=== PATIENT | female | born 1940 | race Caucasian/White ===

== ENCOUNTER 2016-02-21 11:05 | Outpatient (CLI) | payer MEDICARE ==
[2016-02-21 12:16] LABS: Red Blood Cell (RBC) Count 3.32 mill/uL (4.20-5.40); White Blood Cell (WBC) Count 4.9 thou/uL (4.8-10.8)
[2016-02-21 12:18] LABS: ALT (SGPT) 21 U/L (0-55); AST (SGOT) 22 U/L (5-34); Alkaline Phosphatase 88 U/L (40-150); Anion Gap 11 mmol/L (10-20); Anisocytosis SLIGHT = 6-15 cells (100X) (0-5/hpf); BUN (Urea Nitrogen) 17 mg/dL (9.8-20.1); Bilirubin, Total 0.8 mg/dL (0.2-1.2); Calc. Creatinine Clearance 0 mL/min (70-130); Calcium 8.8 mg/dL (7.8-10.44); Carbon Dioxide 26 mmol/L (23-31); Chloride 109 mmol/L (98-107); Estimated GFR-MDRD 68; Globulin 2.2 g/dL (2.4-3.5); Hypochromia SLIGHT = 6-15 cells (100X) (0-5/hpf); LDL Cholesterol, Calculated 57 mg/dL; Neutrophil 49 % (42-75); Protein, Total 5.9 g/dL (5.8-8.1)
--- NOTE | 2016-02-21 14:56 | RAD ---
EXAM: LEFT FOOT THREE VIEWS HISTORY: Pain and swelling x3 weeks. COMPARISON: None. FINDINGS: There are degenerative changes of the first metatarsophalangeal joint space. Minimal hallux valgus deformity. No fractures or cortical irregularity. Joint spaces are preserved. Lisfranc alignment is maintained. Mild hypertrophy of the Achilles tendon insertion site. IMPRESSION: Chronic changes. POS: CRISTAL
--- NOTE | 2016-02-21 15:22 | RAD ---
FRONTAL AND LATERAL IMAGING OF THE LEFT TIBIA AND FIBULA: Date: 02-21-16 Comparison: None. History: Pain and swelling to the left lower extremity/foot for three weeks. No history of trauma. FINDINGS: There are numerous post-operative clips within the soft tissues medial to the proximal and mid shaft left tibia. No fracture or dislocation is evident. IMPRESSION: No acute fracture or dislocation seen. POS: KAYLEE
== END 2016-02-21 11:06 | disposition home or self-care (01) ==
LOC: NAV LAB 11:05
PROVIDERS: ATTEND Family Medicine
DX: I11.9 Hypertensive heart disease without heart failure (principal); M79.672 Pain in left foot; M79.605 Pain in left leg
CPT/HCPCS: 36415; 80053; 80061; 84443; 85025

== ENCOUNTER 2016-03-20 11:40 | Emergency (ER) | payer MEDICARE ==
--- NOTE | 2016-03-20 12:10 | RAD ---
LEFT FOOT THREE VIEWS HISTORY: Left foot injury, chopping wood with ax 6 days ago. COMPARISON: Left foot radiographs 02/21/2016. FINDINGS: No acute fracture or malalignment of the left foot. Moderate interphalangeal joint space narrowing of the distal phalanges. Mild hallux valgus deformity and osseous bunion formation. Moderate dorsa l calcaneal spur. Mild soft tissue edema. IMPRESSION: Increasing dorsal soft tissue edema of the mid foot without acute underlying osseous abnormality. POS: CRISTAL
--- NOTE | 2016-03-20 12:52 | PICIS ---
[facility] EMERGENCY RECORD TRIAGE (11:46 MSPE) PATIENT: NAME: Keshia Alvarez, AGE: 75, GENDER: female, : Sun 1940, TIME OF GREET: SatMar 20, 2016 11:41, PREFERRED LANGUAGE: Estonian, ETHNICITY: Not or , ECODE BILLING MAP: [facility] ER, SSN: [id number], Zip Code: [address], KG WEIGHT: 72.12, PHONE: , , , PERSON ID: [id number], PCP: MD Driver Katherine. (11:46 MSPE) TRIAGE NOTES: chopping wood with ax 9 days ago. Wood fell onto top of left foot. (11:46 MSPE) COMPLAINT: LEFT FOOT INJURY. (11:46 MSPE) ADMISSION: URGENCY: 4 Non Urgent, ADMISSION SOURCE: Home, TRANSPORT: CAR, BED: ER -02. (11:46 MSPE) LMP: LMP: Menopause. (11:49 MSPE) PROVIDERS: TRIAGE NURSE: Jennyfer Guerrero RN. (11:46 MSPE) VITAL SIGNS: BP 174/92, Pulse 52, Resp 18, Temp 96.8, (Oral), Pain 9, O2 Sat 98, on Room Air, Time 03/20/2016 11:44. (11:44 MSPE) KNOWN ALLERGIES unk pain pill CURRENT MEDICATIONS meloxicam: TABLET : Strength - 7.5 mg : ORAL Patient Dose: 1 tab(s) Oral once a day. (12:09 MSPE) Zetia: TABLET : Strength - 10 mg : ORAL Patient Dose: 1 tab(s) Oral once a day. (12:10 MSPE) atorvastatin: TABLET : Strength - 80 mg : ORAL Patient Dose: 1 tab(s) Oral once a day. (12:10 MSPE) Mobic: TABLET : Strength - 15 mg : ORAL Patient Dose: 7.5 mg Oral once a day (after a meal). (12:11 MSPE) lisinopril: TABLET : Strength - 20 mg : ORAL Patient Dose: 20 mg Oral once a day. (12:12 MSPE) carvedilol: TABLET : Strength - 6.25 mg : ORAL Patient Dose: 6.25 mg Oral 2 times a day. (12:12 MSPE) levothyroxine: TABLET : Strength - 88 mcg : ORAL Patient Dose: 88 mcg Oral once a day. (12:13 MSPE) amLODIPine: TABLET : Strength - 5 mg : ORAL Patient Dose: 5 mg Oral once a day. (12:13 MSPE) aspirin: TABLET : Strength - 81 mg : ORAL Patient Dose: 81 mg Oral once a day. (12:14 MSPE) hydrALAZINE: &a-1R&a+25V*p+0X*j7083D*c152B*c15G*c2P*p-0X&a-25V&a+1RName: Rosannaalesia Keshia : 1940 F75 MedRec: [id number] AcctNum: [id number] Prepared: SatMar 20, 2016 14:04 by Interface Page 1 of 5 pMD [facility] EMERGENCY RECORD TABLET : Strength - 25 mg : ORAL Patient Dose: 25 mg Oral 2 times a day (with meals). (12:14 MSPE) furosemide: TABLET : Strength - 20 mg : ORAL Patient Dose: 20 mg Oral once a day. (12:15 MSPE) Eliquis: TABLET : Strength - 5 mg : ORAL Patient Dose: 5 mg Oral once a day. (12:15 MSPE) Fish Oil: CAPSULE : Strength - 1,000 mg : ORAL Patient Dose: 1 cap(s) Oral once a day. (12:18 MSPE) Vitamin D3: CAPSULE : Strength - 1,000 unit : ORAL Patient Dose: 1 cap(s) Oral once a day. (12:18 MSPE) triamcinolone acetonide: OINTMENT (GRAM) : Strength - 0.1 % : TOPICAL Patient Dose: 2 times a day.apply to affected area. (12:22 MSPE) VITAL SIGNS VITAL SIGNS: BP: 174/92, Pulse: 52, Resp: 18, Temp: 96.8 (Oral), Pain: 9, O2 sat: 98 on Room Air, Time: 03/20/2016 11:44. (11:44 MSPE) BP: 165/75, Pulse: 56, Resp: 16, O2 sat: 97 on Room Air, Time: 03/20/2016 12:33. (12:33 MSPE) NURSING ASSESSMENT: EXTREMITY LOWER (11:57 MSPE) CONSTITUTIONAL: Patient arrives ambulatory, Unsteady gait, ambulates with slight limp, History obtained from patient, Patient cooperative, Patient alert, Oriented to person, place and time. PAIN: to the left foot, Onset of pain 03/12/2016. LEFT LOWER EXTREMITY: posterior tibia pulse is +3, Notes: Old bruising to all toes with swelling/redness to dorsum of foot. Slight abrasion to top of foot as well. C/O worsening pain with dorsi-flexion of foot. Sts "feels tight". NOTES: Notes: Leg elevated on pillow upon arrival to ER. NURSING PROCEDURE: BEDSIDE RADIOLOGY (11:57 CCRI) BEDSIDE RADIOLOGY: Bedside radiology performed by NH, Portable x-ray performed, of the left foot. NURSING PROCEDURE: DISCHARGE NOTE (12:37 MSPE) DISCHARGE: Patient discharged to home, ambulating without assistance, driving self, Summary of Care printed/ provided, Discharge instructions given to patient, Simple or moderate discharge teaching performed, Prescriptions given and instructions on side effects given, Above person(s) verbalized understanding of discharge &a-1R&a+25V*p+0X*[id number]*c152B*c15G*c2P*p-0X&a-25V&a+1RName: Keshia Alvarez : 1940 F75 MedRec: [id number] AcctNum: [id number] Prepared: Annia Mar 20, 2016 14:04 by Interface Page 2 of 5 pMD [facility] EMERGENCY RECORD instructions and follow-up care, Patient treated and evaluated by physician. BELONGINGS: Belongings remain with patient. ORDER DETAILS Order Name: XR Foot Lt 3 View STANDARD, Status: Active, Time: 11:53 03/20/2016, User: [place], - Ordered for: MD Lauren, Michelle, - Entered by: YANETH Guerrero, Jennyfer - Annia Mar 20, 2016 11:53, - Quantity: 1. HPI FOOT (11:56 KNGU) CHIEF COMPLAINT: Patient presents for evaluation of injury, to the left foot, Denies numbness, Patient presents for evaluation of pain, to the left foot, Patient presents for evaluation of swelling, to the left foot, Patient presents for evaluation of tenderness, to the left foot. HISTORIAN: History provided by patient, per patient , piece of wood fell on L foot about 1 week ago / with pain and swelling / able to bear weight / no numbness or tingling / on blood thinner. MECHANISM OF INJURY: Known mechanism. LOCATION: Symptoms are localized, most severe to mid dorsal. QUALITY: Pain is dull in nature, described as throbbing. SEVERITY: Maximum severity of symptoms moderate, Currently symptoms are moderate. TIME COURSE: Sudden onset of symptoms, Symptoms are worsening. ASSOCIATED WITH: No associated coolness to touch, No associated distal injury, No associated distal neuro complaint, No associated erythema, No associated inability to ambulate, No associated inability to bear weight, No associated proximal injury, No associated tingling. EXACERBATED BY: Patient's condition exacerbated by nothing. RELIEVED BY: Patient's condition relieved by over the counter medication, Patient's condition relieved by rest. ROS (11:59 KNGU) CONSTITUTIONAL: Negative constitutional review of systems. CARDIOVASCULAR: Negative cardiovascular review of systems. RESPIRATORY: Negative respiratory review of systems. MUSCULOSKELETAL: Historian reports injury, L foot pain. NEUROLOGIC: Negative neurologic review of systems. NOTES: All systems reviewed, negative except as described above. PAST MEDICAL HISTORY (11:49 MSPE) MEDICAL HISTORY: Flu vaccine not up to date, Tetanus not up to date, Pneumococcal vaccine not up to date, Past medical history includes cardiac history, coronary artery disease, Past medical history includes &a-1R&a+25V*p+0X*g5607Q*c152B*c15G*c2P*p-0X&a-25V&a+1RName: Keshia Alvarez : 1940 F75 MedRec: [id number] AcctNum: [id number] Prepared: Annia Mar 20, 2016 14:04 by Interface Page 3 of 5 pMD [facility] EMERGENCY RECORD history of hyperlipidemia, high cholesterol, currently being treated, Past medical history includes history of hypertension, musculoskeletal disorder. rheumatoid arthritis. FEMALE SURGICAL HISTORY: Surgical history of coronary artery bypass graft surgery, five vessels. PSYCHIATRIC HISTORY: Psychiatric history includes, depression. SOCIAL HISTORY: Patient denies alcohol use, Patient denies drug use, Patient has no smoking history. PHYSICAL EXAM (12:00 KNGU) CONSTITUTIONAL: Vital Signs Reviewed, Blood pressure, hypertensive, Respiratory rate normal, Patient appears non toxic, Patient appears, in mild pain distress, Patient alert and oriented to person, place and time, Nursing notes reviewed. HEAD: Head exam included findings of head atraumatic. NECK: Neck exam included findings of normal range of motion. RESPIRATORY CHEST: Respiratory exam included findings of no respiratory distress. LOWER EXTREMITY: distal pulses intact, capillary refill less than 2 seconds, distal motor intact, distal sensory intact, Foot hematoma, left foot, dorsal, Swelling of the foot noted, left foot, dorsal, Foot tenderness, left foot, dorsal. NEURO: Neuro exam normal. PSYCHIATRIC: Psychiatric exam included findings of patient oriented to person place and time. EVENTS TRANSFER: Triage to Emergency Emergency Room -02. (SatMar 20, 2016 11:46 MSPE) Removed from Emergency Emergency Room -02. (12:42 MSPE) DOCTOR NOTES (11:55 KNGU) TEXT: 75 yo F with L foot pain after dropping a piece of wood on it about 1 week ago with pain and swelling / xray foot no acute finding impression : L foot contusion avoid prolong standing or walking , keep leg elevated t3 as needed for pain follow up with pcp in few days. PROBLEM LIST No recorded problems DIAGNOSIS (12:29 KNGU) FINAL: PRIMARY: R foot contusion, ADDITIONAL: R foot contuion. &a-1R&a+25V*p+0X*g0630Q*c152B*c15G*c2P*p-0X&a-25V&a+1RName: Keshia Alvarez : 1940 F75 MedRec: [id number] AcctNum: [id number] Prepared: SatMar 20, 2016 14:04 by Interface Page 4 of 5 pMD [facility] EMERGENCY RECORD DISPOSITION PATIENT: Disposition Type: Discharge, Disposition: *Discharge Home. (12:29 KNGU) Patient left the department. (12:42 MSPE) INSTRUCTION (12:30 KNGU) DISCHARGE: CONTUSION, FOOT. FOLLOWUP: MD Neisha, Anna Marie, Shoaib, [address], [address], [facility] [address], . SPECIAL: please avoid prolonged standing or walking until symptoms resolved Please keep leg elevated at most time can take Tylenol #3 as needed for pain Follow up with your PCP in 2-3 days to recheck if still with pain or swelling. PRESCRIPTION (12:28 KNGU) acetaminophen-codeine: TABLET : 300 mg-30 mg : ORAL : Quantity: 1 Unit: tab(s) Route: ORAL Schedule: every 6 hours PRN Dispense: 15 Unit: tab(s) May substitute. Refills: No Refills . NOTES: No Refills. IMAGING (12:41 MSPE) *DISCHARGE INSTRUCTIONS RECEIPT: Image captured from scanner. *SUPPLY CHARGE SHEET: Image captured from scanner. ADMIN (13:52 KNGU) DIGITAL SIGNATURE: MD Lauren, Michelle. Jesus: CCRI=RAZA Garcia Clemente KNGU=MD Aguilar Kim MSPE=YANETH Guerrero, Jennyfer &a-1R&a+25V*p+0X*h3626D*c152B*c15G*c2P*p-0X&a-25V&a+1RName: Keshia Alvarez : 1940 F75 MedRec: [id number] AcctNum: [id number] Prepared: Annia Mar 20, 2016 14:04 by Interface Page 5 of 5 pMD MTDD
== END 2016-03-20 12:37 | disposition home or self-care (01) ==
LOC: NAV ERS 11:40
DX: S90.31XA Contusion of right foot, initial encounter (principal); I10 Essential (primary) hypertension; I25.10 Atherosclerotic heart disease of native coronary artery without angina pectoris; E78.00 Pure hypercholesterolemia, unspecified; E78.5 Hyperlipidemia, unspecified; M06.9 Rheumatoid arthritis, unspecified; F32.9 Major depressive disorder, single episode, unspecified; Z95.1 Presence of aortocoronary bypass graft; Z79.82 Long term (current) use of aspirin; Z79.2 Long term (current) use of antibiotics; Z79.899 Other long term (current) drug therapy; W22.8XXA Striking against or struck by other objects, initial encounter
CPT/HCPCS: 99283

== ENCOUNTER 2016-06-04 10:53 | Outpatient (CLI) | payer MEDICARE ==
[2016-06-04 11:26] LABS: ALT (SGPT) 22 U/L (0-55); AST (SGOT) 23 U/L (5-34); Albumin 3.7 g/dL (3.4-4.8); Alkaline Phosphatase 77 U/L (40-150); Anion Gap 11 mmol/L (10-20); BUN (Urea Nitrogen) 18 mg/dL (9.8-20.1); Bilirubin, Total 0.6 mg/dL (0.2-1.2); Calc. Creatinine Clearance 0 mL/min (70-130); Calcium 9.3 mg/dL (7.8-10.44); Carbon Dioxide 26 mmol/L (23-31); Cardiac Risk 3.1 (Less than 4.5); Chloride 105 mmol/L (98-107); Cholesterol 130 mg/dL (< 200 Desired); Estimated GFR-MDRD 67; Globulin 3.1 g/dL (2.4-3.5); Glucose 96 mg/dL (83-110); HDL Cholesterol 42 mg/dL (>60 Neg Risk); LDL Cholesterol, Calculated 64 mg/dL; Potassium 4.3 mmol/L (3.5-5.1); Protein, Total 6.8 g/dL (5.8-8.1); Sodium 138 mmol/L (136-145); Triglycerides 118 mg/dL (Less than 150)
== END 2016-06-04 10:54 | disposition home or self-care (01) ==
LOC: NAV LAB 10:53
PROVIDERS: ATTEND Internal Medicine Cardiovascular Disease
DX: E78.00 Pure hypercholesterolemia, unspecified (principal)
CPT/HCPCS: 36415; 80053; 80061

== ENCOUNTER 2017-04-22 08:37 | Outpatient (CLI) | payer MEDICARE ==
--- NOTE | 2017-04-22 17:46 | ULT ---
CAROTID DOPPLER: Technique: Ultrasound doppler study performed of the extracranial carotid arteries. Color doppler wit h spectral analysis velocity recordings obtained. History: Right carotid bruit noted on physical exam. FINDINGS: There is mild echogenic plaque in both bulbs. Velocity records are within normal range bilaterally. There is no evidence of stenosis identified. Ve rtebral arteries show normal antegrade flow. IMPRESSION: 1. Mild echogenic plaque bilaterally. 2. No evidence of carotid stenosis identified. POS: KAYLEE
== END 2017-04-22 08:38 | disposition home or self-care (01) ==
LOC: NAV ULT 08:37
PROVIDERS: ATTEND Family Medicine
DX: R09.89 Other specified symptoms and signs involving the circulatory and respiratory systems (principal); I65.29 Occlusion and stenosis of unspecified carotid artery
CPT/HCPCS: 93880

== ENCOUNTER 2019-09-06 09:15 | Emergency (ER) | payer MEDICARE, MEDICAID ==
[2019-09-06] MEDS ORDERED: Ketorolac Tromethamine 60 MG/2 ML VIAL ONE (10:01)
--- NOTE | 2019-09-06 11:00 | RAD ---
RIGHT SHOULDER THREE VIEWS: HISTORY: Right shoulder pain. FINDINGS: No acute fracture, dislocation or bony destruction is seen. There is soft tissue calcification in the rotator cuff, consistent with calcific tendinosis. POS: MZA
== END 2019-09-06 10:55 | disposition home or self-care (01) ==
LOC: NAV ERS 09:15
DX: S46.001A Unspecified injury of muscle(s) and tendon(s) of the rotator cuff of right shoulder, initial encounter (principal); E03.9 Hypothyroidism, unspecified; D50.9 Iron deficiency anemia, unspecified; I25.10 Atherosclerotic heart disease of native coronary artery without angina pectoris; E78.5 Hyperlipidemia, unspecified; I10 Essential (primary) hypertension; F32.9 Major depressive disorder, single episode, unspecified; Z79.899 Other long term (current) drug therapy; Z79.82 Long term (current) use of aspirin; X50.0XXA Overexertion from strenuous movement or load, initial encounter
CPT/HCPCS: 96372; J1885

== ENCOUNTER 2020-02-07 14:38 | Emergency (ER) | payer MEDICARE, MEDICAID ==
[2020-02-07] MEDS ORDERED: Fleet Enema 133 ML BOT ONE (15:07)
== END 2020-02-07 16:40 | disposition home or self-care (01) ==
LOC: NAV ERS 14:38
DX: K59.00 Constipation, unspecified (principal); E03.9 Hypothyroidism, unspecified; D50.9 Iron deficiency anemia, unspecified; I25.10 Atherosclerotic heart disease of native coronary artery without angina pectoris; E78.5 Hyperlipidemia, unspecified; E78.00 Pure hypercholesterolemia, unspecified; I10 Essential (primary) hypertension; M06.9 Rheumatoid arthritis, unspecified; Z79.899 Other long term (current) drug therapy; Z79.82 Long term (current) use of aspirin
CPT/HCPCS: 99283